=== PATIENT | male | born 1970 | race Caucasian/White ===

== ENCOUNTER 2024-04-09 13:13 | Emergency (ER) | payer MEDICAID, OTHER ==
[~2024-04-09] VITALS: Ht 185.4 cm; Wt 111.4 kg
[2024-04-09 13:24] VITALS: TEMP 97.9
[2024-04-09 15:00] VITALS: RESP 16
[2024-04-09 15:29] VITALS: BP 113/62; PULSE 64; O2SAT 94
== END 2024-04-09 15:42 | disposition home or self-care (01) ==
LOC: ER 13:14
DX: R10.9 Unspecified abdominal pain (principal); K59.00 Constipation, unspecified
CPT/HCPCS: 74018; 74176; 99284; J7030

== ENCOUNTER 2024-07-03 11:29 | Emergency (ER) | payer MEDICAID ==
[~2024-07-03] VITALS: Ht 185.4 cm; Wt 126.0 kg
[2024-07-03 11:51] VITALS: BP 165/96; PULSE 99; TEMP 98.1; O2SAT 96
[2024-07-03] MEDS ORDERED: BENZ9GEL TOP (14:38)
[2024-07-03] MEDS ORDERED: HYDR-3965 PO (14:38)
[2024-07-03 14:40] VITALS: RESP 16
[2024-07-03] MEDS: ketorolac trometh 15mg/ml vial 15 MG/ML ML IM ONE (14:40)
== END 2024-07-03 14:48 | disposition home or self-care (01) ==
LOC: ER 11:29
DX: S02.5XXA Fracture of tooth (traumatic), initial encounter for closed fracture (principal); K02.9 Dental caries, unspecified; Z98.890 Other specified postprocedural states; X58.XXXA Exposure to other specified factors, initial encounter; Y93.89 Activity, other specified; Y92.89 Other specified places as the place of occurrence of the external cause; Y99.8 Other external cause status
CPT/HCPCS: 96372; 99283; J1885

== ENCOUNTER 2024-07-08 11:11 | Emergency (ER) | payer MEDICAID ==
[~2024-07-08] VITALS: Ht 185.4 cm; Wt 103.6 kg
[~2024-07-08 11:11] MED LIST: BENZ9GEL TOP; HYDR-3965 PO
[2024-07-08 11:14] VITALS: TEMP 98.3
[2024-07-08] MEDS ORDERED: HYDR-3965 PO (11:45)
[2024-07-08] MEDS ORDERED: AMOX-117 PO (11:45)
[2024-07-08] MEDS: amox tr/potassium clavulanate 875/125mg TAB PO ONE (11:53)
[2024-07-08 12:03] VITALS: BP 167/71; PULSE 81; RESP 16; O2SAT 99
== END 2024-07-08 12:06 | disposition home or self-care (01) ==
LOC: ER 11:11
DX: K04.7 Periapical abscess without sinus (principal); K02.9 Dental caries, unspecified; Z79.2 Long term (current) use of antibiotics
CPT/HCPCS: 99283

== ENCOUNTER 2024-12-14 08:15 | Outpatient (CLI) | payer MEDICAID ==
[~2024-12-14 08:15] MED LIST changes: -HYDR-3965 PO
--- NOTE | 2024-12-14 13:36 | RADIOLOGY REPORT ---
INDICATION: HX OF INGUINAL HERNIA REPAIR TECHNIQUE: Multiple real-time sonographic images of the abdomen were obtained. COMPARISON: None FINDINGS: The liver is homogenous in echogenicity. The liver measures 16.6 cm. No intrahepatic biliar y ductal dilatation is noted. The gallbladder wall measures 0.2 cm and is unremarkable. No gallstones or sludge is seen. The comm on duct measures 0.4 cm and is unremarkable. No pericholecystic fluid is noted. The right kidney measures 12.8cm. No hydronephrosis. The left kidney measures 11.5 cm. No hydronephr osis. The spleen measures 12.2 cm, within normal limits. The echogenicity is within normal limits. The pancreas is not well visualized due to obscuration from bowel gas. The abdominal aorta is obscured tear of the visualized portions of the IVC are unremarkable. Abdominal Wall: No hernia visualized. No mass or fluid collection. IMPRESSION: 1. No acute process. No mass or fluid collection in the abdominal wall.
== END 2024-12-14 23:59 | disposition home or self-care (01) ==
LOC: RAD 08:15
PROVIDERS: ATTEND Nurse Practitioner Family
DX: R10.9 Unspecified abdominal pain (principal); Z98.890 Other specified postprocedural states
CPT/HCPCS: 76700

== ENCOUNTER 2025-03-06 10:09 | Emergency (ER) | payer MEDICAID ==
[~2025-03-06] VITALS: Ht 185.4 cm; Wt 127.3 kg
[2025-03-06 10:15] VITALS: TEMP 98
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
[2025-03-06] MEDS ORDERED: MUPI22OI30 TOP (12:06)
[2025-03-06] MEDS ORDERED: DOXY-347 PO (12:06)
[2025-03-06 12:26] VITALS: BP 120/66; PULSE 67; RESP 18; O2SAT 98
== END 2025-03-06 12:27 | disposition home or self-care (01) ==
LOC: ER 10:10
DX: L01.00 Impetigo, unspecified (principal); L73.9 Follicular disorder, unspecified
CPT/HCPCS: 99283; A6449